=== PATIENT | male | born 1940 | race Caucasian/White ===

== ENCOUNTER 2021-01-08 05:51 | Emergency (ER) | payer MEDICARE ==
[~2021-01-08] VITALS: Ht 175.3 cm; Wt 74.8 kg
[2021-01-08] MEDS ORDERED: TETANUS/DIPHTHERIA TOX ADULT 0.5 ML SYR IM ONE (06:15)
[2021-01-08 09:00] LABS: BASOPHILS % 0.3 % (0.0-1.0); HEMATOCRIT 38.8 % (38.2-49.6); LYMPHOCYTES # (AUTO) 1.1 (1.0-3.2); LYMPHOCYTES % 9.5 % (18.0-39.1); MEAN CORPUSCULAR HGB CONC 33.5 g/dL (31-35); MEAN CORPUSCULAR VOLUME 86.6 fL (81-99); MONOCYTES # (AUTO) 1.6 (0.2-0.8); MONOCYTES % 13.6 % (4.4-11.3); NEUTROPHILS % 76.2 % (38.7-80.0); PLATELET COUNT 267 x10e3/uL (140-360); RED BLOOD COUNT 4.48 x10e6/uL (4.3-5.7); RED CELL DISTRIBUTION WIDTH 12.8 % (11.7-14.4)
[2021-01-08 09:27] LABS: ALANINE AMINOTRANSFERASE 25 IU/L (0-55); ALKALINE PHOSPHATASE 76 IU/L (40-150); ANION GAP 15.6 mmol/L (8-16); BLOOD UREA NITROGEN 21 mg/dL (7-26); BUN/CREATININE RATIO 23 (6-25); CARBON DIOXIDE 24 mmol/L (22-29); CHLORIDE 111 mmol/L (98-107); CREATININE, SERUM 0.93 mg/dL (0.72-1.25); EST GLOMERULAR FILTRATION RATE > 60 ML/MIN (60-); GLUCOSE 99 mg/dL (74-118); POTASSIUM 3.6 mmol/L (3.5-5.1); SODIUM 147 mmol/L (136-145)
[2021-01-08 09:46] LABS: INR 1.13; PROTHROMBIN TIME 15.2 seconds (11.9-14.5)
== END 2021-01-08 11:45 | disposition other institution (70) ==
LOC: ER 05:57
DX: S06.5X0A Traumatic subdural hemorrhage without loss of consciousness, initial encounter (principal); S02.40FA Zygomatic fracture, left side, initial encounter for closed fracture; S02.2XXA Fracture of nasal bones, initial encounter for closed fracture; S51.011A Laceration without foreign body of right elbow, initial encounter; W19.XXXA Unspecified fall, initial encounter; Y92.098 Other place in other non-institutional residence as the place of occurrence of the external cause; M25.512 Pain in left shoulder
CPT/HCPCS: 36415; 70450; 70486; 71045; 72125; 72170; 80053; 85025; 85610; 90714; 99284